=== PATIENT | female | born 1965 | race Caucasian/White ===

== ENCOUNTER 2019-05-07 17:38 | Outpatient (CLI) | payer BC, SELFPAY ==
--- NOTE | ~2019-05-07 | MM_ITS ---
EXAMINATION: MM screening desiree BI w marbella HISTORY: Screening mammogram, family history of breast cancer in her sister. TECHNIQUE: Craniocaudal and mediolateral oblique 3-D tomosynthesis images were obtained and synthetic 2-D images were generated. CAD analysis was submitted and interpreted. COMPARISON: 01/31/2017 BREAST PARENCHYMAL COMPOSITION: There are scattered areas of fibroglandular density. FINDINGS: Chronic asymmetry of breast size is related to childhood right breast injury. There is a st able low-density mass in the middle third of the outer left breast, considered benign given the lack of interval change. There is no evidence of suspicious mass, calcification, or architectural distorti on to suggest malignancy in either breast. There has been no suspicious interval change. IMPRESSION: 1. No mammographic evidence of malignancy. 2. Recommend routine screening mammography in one year. BI-RADS Category 2: Benign finding(s). Reviewed, dictated and finalized at location A. ROENTEROLOGY MANAGER
== END 2019-05-07 17:39 | disposition home or self-care (01) ==
LOC: ANHIMG 17:41
PROVIDERS: PCP Internal Medicine; Visit Provider Obstetrics & Gynecology
DX: Z12.31 Encounter for screening mammogram for malignant neoplasm of breast (principal)
CPT/HCPCS: 77063; 77067

== ENCOUNTER 2023-11-04 18:14 | Emergency (ER) | payer OTHER, SELFPAY ==
--- NOTE | ~2023-11-04 | XR_ITS ---
XR chest 2V DATE: 11/04/2023 18:37 INDICATION: Dizziness TECHNIQUE: PA and lateral views COMPARISON: 04/22/2016 2 view chest FINDINGS: Normal heart size. No hilar or mediastinal enlargement. No pulmonary infiltrate or consolid ation, pleural effusion or pulmonary vascular congestion or pneumothorax is detected. Osteophytic change of the left glenohumeral joint. Osteopenia. Mild thoracic dextroscoliosis. IMPRESSION: No active cardiopulmonary disease Reviewed, dictated and finalized at location J.
--- NOTE | ~2023-11-04 | CT_ITS ---
EXAMINATION: CT brain wo con DATE: 11/04/2023 20:20 INDICATION: Dizziness for 4 days. Double vision. TECHNIQUE: Computed tomography (CT) of the head was performed without intravenous contrast. The mA wa s adjusted according to patient size. Iterative reconstruction technique was employed. Exam dose: 60 5.33 mGy-cm total exam DLP. COMPARISON: None FINDINGS: Carotid siphon internal carotid artery calcifications are noted. No intracranial mass lesion or hemorrhage or cerebrovascular accident. No suprasellar mass. The sella turcica. No midline shift or mass effect. Normal ventricular size. No subdural or epidural hematoma. Bilateral nasal antral windows. There is mild mucoperiosteal thickening of the right maxillary sinus and minimal focal soft tissue thickening of the anterior left ethmoid air cells. The paranasal sinuse s and mastoid air cells are otherwise unremarkable. No fracture or bone destruction of the cranial vault. IMPRESSION: Cerebral atherosclerosis; no acute intracranial finding Bilateral nasal antral windows Mild mucoperiosteal thickening of the right maxillary sinus and left ethmoid air cells Reviewed, dictated and finalized at Location A. Reviewed, dictated and finalized at location J. IMPRESSION: Cerebral atherosclerosis; no acute intracranial finding Bilateral nasal antral windows Mild mucoperiosteal thickening of the right maxillary sinus and left ethmoid ai r cells
[2023-11-04 18:18] VITALS: BP 131/51; PULSE 79; RESP 16; TEMP 36.7; O2SAT 99
--- NOTE | 2023-11-04 18:21 | ECG_ITS ---
Test Date: 2023-11-04 18:24:46 Measurements Intervals Ruby Rate: 79 P: 52 [place]: 150 QRS: 7 QRSD: 76 T: 32 QT: 363 QTc: 417 Interpretive Statements SINUS RHYTHM POSSIBLE LEFT ATRIAL ENLARGEMENT [-0.1mV P WAVE IN V1/V2] NONSPECIFIC T-WAVE ABNORMALITY ABNORMAL ECG No previous ECG available for comparison Electronically Signed On 11-05-2023 09:01:52 CDT by Brian Almanzar M.D.
[2023-11-04 18:39] LABS: Basophils Percent Auto 0.5 % (0.2-1.2); Eosinophils Absolute Auto 0.1 K/mm3 (0-0.3); Eosinophils Percent Auto 1.1 % (0-4.4); Hematocrit 39.1 % (37.0-47.0); Hemoglobin 13.6 g/dL (12.0-15.0); Immature Granulocyte Absolute 0.02 K/mm3 (0.00-0.031); Immature Granulocyte Percent A 0.2 % (0-0.5); Lymphocytes Absolute Auto 2.54 K/mm3 (0.9-3.2); Lymphocytes Percent Auto 31.5 % (18.3-44.2); Mean Corpuscular HGB Conc 34.8 g/dl (32-36); Mean Corpuscular Hemoglobin 32.5 pg (26-34); Mean Corpuscular Volume 93.3 fl (80-100); Mean Platelet Volume 9.4 fl (7.4-10.4); Monocytes Absolute Auto 0.5 K/mm3 (0.1-0.6); Monocytes Percent Auto 5.9 % (2.6-8.5); Neutrophils Absolute Auto 4.9 K/mm3 (1.3-6.7); Neutrophils Percent Auto 60.8 % (45.5-73.1); Platelet Count Result 253 k/mm3 (150-375); Red Blood Count 4.19 M/mm3 (4.2-5.4); Red Cell Distribution Width 12.3 % (11.5-14.5); White Blood Count 8.1 K/mm3 (4.5-10.0)
[2023-11-04 18:44] VITALS: BP 129/67; O2SAT 100
[2023-11-04 18:46] VITALS: BP 121/52; PULSE 78; RESP 13; O2SAT 98
[2023-11-04 18:50] LABS: Alanine Aminotransferase 18 U/L (6-35); Albumin Level 4.1 g/dL (3.5-5.1); Alkaline Phosphatase 111 U/L (38-126); Anion Gap 8 mmol/L (4-12); Aspartate Amino Transferase 23 U/L (14-36); Bilirubin,Total 0.5 mg/dL (0.2-1.3); Blood Urea Nitrogen 10 mg/dL (7-17); Calcium 8.5 mg/dL (8.4-10.2); Carbon Dioxide 25 mmol/L (22-30); Chloride 94 mmol/L (98-107); Estimated CRCL calculation 68 ml/min; Estimated Glomerular Filt Rate > 60; Glucose 96 mg/dL (65-110); Potassium 3.5 mmol/L (3.4-5.0); Sodium 127 mmol/L (137-145)
[2023-11-04 19:02] VITALS: BP 118/56; PULSE 78; RESP 15; O2SAT 99
[2023-11-04 19:35] LABS: Influenza A QL RT-PCR Negative (Negative); Influenza B QL RT-PCR Negative (Negative); RSV RNA, RT-PCR Negative (Negative); SARS-CoV-2 RNA PCR Negative (Negative)
[2023-11-04 19:47] LABS: Magnesium 1.6 mg/dL (1.6-2.3)
[2023-11-04 20:00] VITALS: PULSE 76; RESP 13; O2SAT 99
[2023-11-04 20:00] LABS: Troponin I < 0.012 ng/mL (0.000-0.034)
[2023-11-04 20:10] LABS: Add Urine Microscopic? YES; Appearance Urine Clear (Clear); Bacteria Urine None Seen /hpf; Bilirubin Urine Negative (Negative); Blood Urine 1+ (Negative); Color Urine Yellow (Yellow); Glucose Urine UA Negative (Negative); Ketones Urine Negative (Negative); Leukocyte Esterase Ur Negative LEU/UL (Negative); Need Manual Microscopic Reviewed; Nitrate Urine Negative (Negative); Non Pathogenic Casts 0-2; Protein Urine Negative (Negative); Specific Grav Ur 1.003 (1.001-1.035); Squamous Epithelial Cell Urine None Seen /hpf (Few); Urobilinogen Urine 0.2 mg/dL (<2.0); WBC Urine 0-5 /hpf (0-3); pH Urine 6.5 (5.0-9.0)
[2023-11-04] MEDS: SODIUM CHLORIDE 0.9% IV 1,000 ML 999 ML IV CONT (20:40)
[2023-11-04] MEDS: diphenhydrAMINE HCl INJ 50 MG/ML VIAL 25 MG IV PUSH (20:40)
[2023-11-04] MEDS: METOCLOPRAMIDE HCL INJ 10 MG/2 ML VIAL IV PUSH (20:40)
[2023-11-04] MEDS: MECLIZINE HCL 25 MG TABLET PO (20:40)
[2023-11-04 20:45] VITALS: PULSE 83; RESP 16; O2SAT 100
--- NOTE | 2023-11-04 21:19 | PC.NURSE ---
patient decline orthostatic bp
--- NOTE | 2023-11-04 21:23 | ED.GENADULT ---
HPI - General Adult General Chief complaint: Dizziness Stated complaint: DIZZY Time Seen by Provider: 11/04/23 19:18 History of Present Illness HPI narrative: Patient is 58-year-old female who presents emergency department with chief complaint of dizziness patient reports for the last 4 days she has been having symptoms that feel as though the room is spinning patient does report that time she has had some double vision reports that she has had headache with this as well patient reports had prior history of vertigo and also history of ear infections. Patient does report that she has had some postnasal drip with this Related Data Home Medications Medication Instructions Recorded Confirmed famotidine 10 mg tablet 10 mg PO DAILY 05/01/19 Allergies Allergy/AdvReac Type Severity Reaction Status Date / Time codeine Allergy Unknown Verified 05/01/19 15:14 Iodinated Contrast Media Allergy Unknown Verified 05/01/19 15:14 Review of Systems Review of Systems: A 10 system review of systems was completed on the patient and is negative except for what is stated in the HPI. Nursing and ancillary documentation was reviewed. [facility] Past Medical History Medical History Esophageal reflux Surgical History Surgical History Delivery by section x3 History of bilateral tubal ligation Family History Family History Father Lung cancer Mother Hypertension CAD (coronary artery disease) TIA (transient ischemic attack) Diabetes mellitus Sibling Breast cancer Social History Social History Smoking packs per day: 0.5 Smoking cigarettes per day: 10.0 Smoking status: Current every day smoker Alcohol intake: never Exam Narrative: GENERAL: Well-appearing, well-nourished, and in no acute distress. HEAD: Normocephalic, atraumatic. EYES: PERRLA and EOMI. ENT: Nares clear, no rhinorrhea or epistaxis. Mucous membranes moist. NECK: Supple. CHEST: Clear to auscultation. No respiratory distress. HEART: Regular rate and rhythm. No murmur heard. Normal peripheral pulses. ABDOMEN: Soft, nontender, nondistended, normal active bowel sounds. EXTREMITIES: Normal range of motion. No edema. SKIN: Warm, dry, no rash. NEURO: No focal deficits. Alert and oriented x3. PSYCH: Normal mood and affect. Course Vital Signs Vital signs: Vital Signs Temperature 36.7 C 11/04/23 18:18 Pulse Rate 79 11/04/23 18:18 Respiratory Rate 16 11/04/23 18:18 Blood Pressure 131/51 L 11/04/23 18:18 Pulse Oximetry 99 11/04/23 18:18 Temperature 36.7 C 11/04/23 18:18 Pulse Rate 83 11/04/23 20:45 Respiratory Rate 16 11/04/23 20:45 Blood Pressure 118/56 L 11/04/23 19:02 Pulse Oximetry 100 11/04/23 20:45 Medical Decision Making MDM Narrative Medical decision making narrative: Differential diagnosis includes otitis media, sinusitis, vertigo, electrolyte abnormality, CVA Patient is outside of the window for thrombolytics therapy CT head showed no acute abnormality and the patient has evidence of a right maxillary sinus infection Patient received IV fluids received IV Reglan Benadryl and also received p.o. Antivert. The patient is feeling much better at this time does report she feels little anxious after receiving the Reglan. Vital Signs Vital Signs: Vital Signs Temperature 36.7 C 11/04/23 18:18 Pulse Rate 79 11/04/23 18:18 Respiratory Rate 16 11/04/23 18:18 Blood Pressure 131/51 L 11/04/23 18:18 Pulse Oximetry 99 11/04/23 18:18 Temperature 36.7 C 11/04/23 18:18 Pulse Rate 83 11/04/23 20:45 Respiratory Rate 16 11/04/23 20:45 Blood Pressure 118/56 L 11/04/23 19:02 Pulse Oximetry 100 11/04/23 20:45
--- NOTE | 2023-11-04 21:24 | PC.NURSE ---
patient began getting anxiety symptoms from Reglan and declined the rest of fluids and IV magnesium supplement. provided patient an ice pack, paper to fan themselves, and ice chips to assist with being hot and anxiety symptoms. patient is not hyperventilating, but is feeling very restless. attempted non-pharmacological interventions without relief.
== END 2023-11-04 21:35 | disposition home or self-care (01) ==
PROVIDERS: Emergency Medicine; Emergency Provider Emergency Medicine; PCP Family Medicine
DX: R42 Dizziness and giddiness (principal); J32.0 Chronic maxillary sinusitis; K21.9 Gastro-esophageal reflux disease without esophagitis; F17.210 Nicotine dependence, cigarettes, uncomplicated; R94.31 Abnormal electrocardiogram [ECG] [EKG]
CPT/HCPCS: 36415; 70450; 71046; 80053; 81001; 83735; 84484; 85025; 87637; 93005; 96361; 96374; 96375; 99284; A9270; J1200; J2765; J7030

== ENCOUNTER 2023-11-23 11:15 | Outpatient (CLI) | payer OTHER, SELFPAY ==
[2023-11-23 13:32] LABS: Basophils Percent Auto 0.5 % (0.2-1.2); Eosinophils Absolute Auto 0.2 K/mm3 (0-0.3); Eosinophils Percent Auto 2.6 % (0-4.4); Hematocrit 43.2 % (37.0-47.0); Hemoglobin 14.2 g/dL (12.0-15.0); Immature Granulocyte Absolute 0.02 K/mm3 (0.00-0.031); Immature Granulocyte Percent A 0.3 % (0-0.5); Lymphocytes Percent Auto 36.6 % (18.3-44.2); Mean Corpuscular HGB Conc 32.9 g/dl (32-36); Mean Corpuscular Hemoglobin 31.8 pg (26-34); Mean Corpuscular Volume 96.9 fl (80-100); Mean Platelet Volume 9.9 fl (7.4-10.4); Monocytes Absolute Auto 0.3 K/mm3 (0.1-0.6); Monocytes Percent Auto 4.5 % (2.6-8.5); Neutrophils Absolute Auto 4.1 K/mm3 (1.3-6.7); Neutrophils Percent Auto 55.5 % (45.5-73.1); Platelet Count Result 302 k/mm3 (150-375); Red Blood Count 4.46 M/mm3 (4.2-5.4); Red Cell Distribution Width 12.6 % (11.5-14.5); White Blood Count 7.4 K/mm3 (4.5-10.0)
[2023-11-23 14:10] LABS: Alanine Aminotransferase 22 U/L (6-35); Albumin Level 4.1 g/dL (3.5-5.1); Alkaline Phosphatase 114 U/L (38-126); Anion Gap 4 mmol/L (4-12); Aspartate Amino Transferase 47 U/L (14-36); Bilirubin,Total 0.4 mg/dL (0.2-1.3); Blood Urea Nitrogen 10 mg/dL (7-17); Calcium 8.9 mg/dL (8.4-10.2); Carbon Dioxide 31 mmol/L (22-30); Chloride 101 mmol/L (98-107); Cholesterol 205 mg/dL (0-200); Estimated Glomerular Filt Rate > 60; Glucose 88 mg/dL (65-110); HDL Direct 43 mg/dL; Potassium 4.2 mmol/L (3.4-5.0); Sodium 136 mmol/L (137-145); Triglycerides 156 mg/dL (<150)
[2023-11-23 14:22] LABS: LDL Cholesterol Direct 128 mg/dL
[2023-11-23 14:42] LABS: Thyroid Stimulating Hormone 0.846 uIU/mL (0.465-4.680)
[2023-11-23 14:50] LABS: Vitamin D 25 Hydroxy 19.7 ng/mL
[2023-11-23 15:36] LABS: Hemoglobin A1C 5.9 % (<5.7)
== END 2023-11-23 11:16 | disposition home or self-care (01) ==
LOC: ANHGOSHLAB 11:16
PROVIDERS: PCP Family Medicine; Visit Provider Nurse Practitioner Family
DX: Z00.00 Encounter for general adult medical examination without abnormal findings (principal); F41.9 Anxiety disorder, unspecified; M81.0 Age-related osteoporosis without current pathological fracture; T78.40XA Allergy, unspecified, initial encounter; E78.5 Hyperlipidemia, unspecified; Z13.29 Encounter for screening for other suspected endocrine disorder; E53.8 Deficiency of other specified B group vitamins; R73.03 Prediabetes
CPT/HCPCS: 36415; 80053; 80061; 82306; 82607; 83036; 84443; 85025

== ENCOUNTER 2024-07-25 09:07 | Outpatient (CLI) | payer OTHER, SELFPAY ==
[2024-07-25 19:34] LABS: Basophils Absolute Auto 0.1 K/mm3 (0.0-0.1); Eosinophils Absolute Auto 0.1 K/mm3 (0-0.3); Eosinophils Percent Auto 1.4 % (0-4.4); Hematocrit 45.9 % (37.0-47.0); Hemoglobin 14.6 g/dL (12.0-15.0); Immature Granulocyte Absolute 0.01 K/mm3 (0.00-0.031); Immature Granulocyte Percent A 0.1 % (0-0.5); Lymphocytes Absolute Auto 2.27 K/mm3 (0.9-3.2); Lymphocytes Percent Auto 31.7 % (18.3-44.2); Mean Corpuscular HGB Conc 31.8 g/dl (32-36); Mean Corpuscular Volume 97.5 fl (80-100); Mean Platelet Volume 10.2 fl (7.4-10.4); Monocytes Absolute Auto 0.4 K/mm3 (0.1-0.6); Monocytes Percent Auto 5.7 % (2.6-8.5); Neutrophils Absolute Auto 4.3 K/mm3 (1.3-6.7); Neutrophils Percent Auto 60.1 % (45.5-73.1); Platelet Count Result 293 k/mm3 (150-375); Red Blood Count 4.71 M/mm3 (4.2-5.4); Red Cell Distribution Width 12.9 % (11.5-14.5); White Blood Count 7.2 K/mm3 (4.5-10.0)
[2024-07-25 20:02] LABS: Alanine Aminotransferase 17 U/L (6-35); Alkaline Phosphatase 118 U/L (38-126); Anion Gap 5 mmol/L (4-12); Aspartate Amino Transferase 30 U/L (14-36); Bilirubin,Total 0.4 mg/dL (0.2-1.3); Blood Urea Nitrogen 12 mg/dL (7-17); Calcium 8.8 mg/dL (8.4-10.2); Carbon Dioxide 30 mmol/L (22-30); Chloride 104 mmol/L (98-107); Cholesterol 203 mg/dL (0-200); Estimated Glomerular Filt Rate > 60; Glucose 87 mg/dL (65-110); HDL Direct 44 mg/dL; Potassium 4.1 mmol/L (3.4-5.0); Sodium 139 mmol/L (137-145); Triglycerides 173 mg/dL (<150)
[2024-07-25 20:12] LABS: Vitamin D 25 Hydroxy 19.5 ng/mL
[2024-07-25 20:16] LABS: LDL Cholesterol Direct 121 mg/dL
[2024-07-25 20:25] LABS: Thyroid Stimulating Hormone Reflex 0.985 uIU/mL (0.465-4.68)
[2024-07-25 20:34] LABS: Hemoglobin A1C 5.8 % (<5.7)
== END 2024-07-25 09:08 | disposition home or self-care (01) ==
LOC: ANHGOSHLAB 09:08
PROVIDERS: PCP Family Medicine; Visit Provider Family Medicine
DX: Z00.00 Encounter for general adult medical examination without abnormal findings (principal); R73.03 Prediabetes; E78.5 Hyperlipidemia, unspecified; E53.8 Deficiency of other specified B group vitamins; E55.9 Vitamin D deficiency, unspecified; F41.9 Anxiety disorder, unspecified
CPT/HCPCS: 36415; 80053; 80061; 82306; 82607; 83036; 84443; 85025

== ENCOUNTER 2025-01-02 08:51 | Outpatient (CLI) | payer OTHER, SELFPAY ==
--- NOTE | ~2025-01-02 | MM_ITS ---
EXAMINATION: MM screening [facility] BI w marbella HISTORY: Screening TECHNIQUE: Craniocaudal and mediolateral oblique 3-D tomosynthesis images were obtained and synthetic 2-D images were generated. CAD analysis was submitted and interpreted. COMPARISON: Comparison to multiple prior studies sequentially, with oldest reviewed study dated 01/31/2017. BREAST PARENCHYMAL COMPOSITION: Not dense: There are scattered areas of fibroglandular density. FINDINGS: There is no evidence of suspicious mass, calcification, or architectural distortion to suggest malignancy in either breast. There has been no suspicious interval change. IMPRESSION: 1. No mammographic evidence of malignancy. 2. Recommend routine screening mammography in one year. BI-RADS Category 1: Negative Reviewed, dictated and finalized at location C.
--- NOTE | ~2025-01-02 | DEXA_ITS ---
Bone Density Report Name: MASON GARCIA Age: 59 Sex: Female Ethnicity: White Date of : 1965 Indication: postmenopausal; screening for osteoporosis; height loss; prior fracture; Referring Provider: Chinmay Alexander Study: Bone densitometry was performed. Exam Date: January 02, 2025 Accession number: [id number] Bone Density: Region BMD T-score Z-score Classification AP Spine(L1-L4) 0.805 -2.2 -0.7 Osteopenia Femoral Neck (Left) 0.658 -1.7 -0.4 Osteopenia Total Hip (Left) 0.748 -1.6 -0.6 Osteopenia Femoral Neck (Right) 0.633 -1.9 -0.6 Osteopenia Total Hip (Right) 0.731 -1.7 -0.7 Osteopenia Total Hip Mean 0.739 -1.7 -0.7 Osteopenia World Health Organization criteria for BMD impression classify patients as: Normal (T-score at or above -1.0), Osteopenia (T-score between -1.0 and -2.5), or Osteoporosis (T-score at or below -2.5). 10-year Fracture Risk(1): Major Osteoporotic Fracture 17% Hip Fracture 3.5% Reported Risk Factors: [place] (), Neck BMD=0.633, BMI=28.4, previous fracture, smoking (1) FRAX(R) Version 3.08. Fracture probability calculated for an untreated patient. Fracture probability may be lower if the patient has received treatment. Clinical Information Provided by Patient: Has had a low trauma fracture Smokes Has used the following medications: Vitamin D Patient maximum height was 63 Menopause Age: 50 No regular weight bearing exercise Does not regularly consume dairy products Onset of menses at age 13 Number of children 3 Impression: The patient has low bone mass, based on the Total Spine T-score. The patient has an estimated ten-year risk of hip fracture of 3.5% and an estimated ten-year risk of major fracture of 17%, based on the WHO FRAX algorithm. The patient has risk factors, including: smoking, previous fracture. Discussion: BONE DENSITY IS LOW AT ONE OR MORE SKELETAL SITES. THE PATIENT'S BMD AND CLINICAL RISK FACTORS CONTRIBUTE TO THIS PATIENT'S INCREASED RISK OF FRACTURE. This patient's lowest T-score is low at one or more skeletal sites. It meets the World Health Organization's (WHO) criteria for ?low bone mass? (T-score between -1.0 and -2.5). The patient's 10-year risk of hip fracture as calculated by FRAX exceeds the threshold where pharmacological therapy is recommended by the National Osteoporosis Foundation (NOF). However, all treatment decisions require clinical judgment and consideration of individual patient factors, including patient preferences, comorbidities, previous drug use, risk factors not captured in the FRAX model (e.g., frailty, falls, vitamin D deficiency, increased bone turnover, interval significant decline in bone density) and possible under or overestimation of fracture risk by FRAX. The patient should follow a healthful lifestyle (good nutrition with adequate calcium and vitamin D, and appropriate weight-bearing exercise). Follow-Up: Consider a repeat BMD and Vertebral Fracture Assessment (VFA) exam in 2 years or sooner if medically necessary, to reassess this patient's status. Reported by: NIRALI on 01/02/2025 9:23:00 AM. Reviewed, dictated and finalized at location A.
== END 2025-01-02 08:52 | disposition home or self-care (01) ==
LOC: MICIMG 08:52
PROVIDERS: PCP Family Medicine; Visit Provider Family Medicine
DX: Z12.31 Encounter for screening mammogram for malignant neoplasm of breast (principal); M85.89 Other specified disorders of bone density and structure, multiple sites; Z78.0 Asymptomatic menopausal state
CPT/HCPCS: 77063; 77067; 77080

== ENCOUNTER 2025-02-05 11:07 | Outpatient (CLI) | payer OTHER, SELFPAY ==
[2025-02-05 14:01] LABS: Alanine Aminotransferase 17 U/L (6-35); Albumin Level 4.4 g/dL (3.5-5.1); Alkaline Phosphatase 106 U/L (38-126); Anion Gap 8 mmol/L (4-12); Aspartate Amino Transferase 50 U/L (14-36); Bilirubin,Total 0.6 mg/dL (0.2-1.3); Blood Urea Nitrogen 16 mg/dL (7-17); Calcium 9.5 mg/dL (8.4-10.2); Carbon Dioxide 29 mmol/L (22-30); Chloride 103 mmol/L (98-107); Estimated Glomerular Filt Rate > 60; Glucose 97 mg/dL (65-110); Potassium 4.1 mmol/L (3.4-5.0); Sodium 140 mmol/L (137-145); Total Protein 7.5 g/dL (6.3-8.2)
[2025-02-05 16:52] LABS: Hemoglobin A1C 5.5 % (<5.7)
== END 2025-02-05 11:08 | disposition home or self-care (01) ==
LOC: ANHGOSHLAB 11:09
PROVIDERS: PCP Family Medicine; Visit Provider Family Medicine
DX: E55.9 Vitamin D deficiency, unspecified (principal); R73.03 Prediabetes; Z79.899 Other long term (current) drug therapy
CPT/HCPCS: 36415; 80053; 82306; 83036